=== PATIENT | male | born 1945 | race Caucasian/White ===

== ENCOUNTER 2017-06-10 20:44 | Emergency (ER) | payer OTHER ==
[~2017-06-10] VITALS: Ht 182.9 cm; Wt 100.0 kg
[2017-06-10 22:12] VITALS: BP 148/80
== END 2017-06-10 22:13 | disposition home or self-care (01) ==
LOC: EME 20:44
DX: S70.11XA Contusion of right thigh, initial encounter (principal); V49.9XXA Car occupant (driver) (passenger) injured in unspecified traffic accident, initial encounter; Z86.73 Personal history of transient ischemic attack (TIA), and cerebral infarction without residual deficits; Z95.1 Presence of aortocoronary bypass graft; Z79.01 Long term (current) use of anticoagulants
CPT/HCPCS: 80053; 85027; 99281; 99284